=== PATIENT | female | born 1980 | race African-American/Black ===

== ENCOUNTER 2016-12-04 08:09 | Emergency (ER) | payer MEDICAID ==
[~2016-12-04] VITALS: Ht 172.7 cm; Wt 70.0 kg
[~2016-12-04 08:09] MED LIST: ASPI-1159 PO; IBUP-2030 PO; NITR0.4T49 SL
[2016-12-04] MEDS ORDERED: IBUPROFEN 600MG TABLET PO ONE (09:00)
[2016-12-04] MEDS ORDERED: BACITRACIN ZINC OINT UDPKT TOP ONE ×2 (09:15→10:15)
[2016-12-04 10:30] VITALS: BP 150/92
== END 2016-12-04 11:29 | disposition home or self-care (01) ==
LOC: ER 11:27
DX: S90.01XA Contusion of right ankle, initial encounter (principal); S90.31XA Contusion of right foot, initial encounter; I25.2 Old myocardial infarction; F17.210 Nicotine dependence, cigarettes, uncomplicated; F12.10 Cannabis abuse, uncomplicated; F14.10 Cocaine abuse, uncomplicated; Z88.0 Allergy status to penicillin; Z79.82 Long term (current) use of aspirin; X58.XXXA Exposure to other specified factors, initial encounter; Y93.89 Activity, other specified; Y92.29 Other specified public building as the place of occurrence of the external cause
CPT/HCPCS: 73600; 73620; 99284; Z7610

== ENCOUNTER 2018-01-22 23:36 | Emergency (ER) | payer MEDICAID ==
[~2018-01-22] VITALS: Ht 162.6 cm; Wt 63.0 kg
[2018-01-23] MEDS ORDERED: TETANUS, DIPHTHERIA, PERTUSSIS VAC/PF 0.5ML (>7YR OLD) IM ONE (00:15)
[2018-01-23] MEDS ORDERED: LORAZEPAM 1MG TABLET PO ONE (00:15)
[2018-01-23] MEDS ORDERED: LIDOCAINE 1%/EPI 1:100,000 10 ML VIAL IJ ONE (00:15)
[2018-01-23] MEDS ORDERED: ACETAMINOPHEN 325MG TABLET PO ONE (00:15)
[2018-01-23] MEDS ORDERED: BACITRACIN ZINC OINT UDPKT TOP ONE (00:15)
[2018-01-23] MEDS ORDERED: HYDROCODONE/ACETAMINOPHEN 5/325MG TABLET PO ONE (02:00)
[2018-01-23 02:41] VITALS: BP 121/71
== END 2018-01-23 02:50 | disposition home or self-care (01) ==
LOC: ER 23:36
DX: S56.121A Laceration of flexor muscle, fascia and tendon of right index finger at forearm level, initial encounter (principal); S51.811A Laceration without foreign body of right forearm, initial encounter; W25.XXXA Contact with sharp glass, initial encounter; Y93.89 Activity, other specified; Y92.89 Other specified places as the place of occurrence of the external cause; Y99.8 Other external cause status; Z88.0 Allergy status to penicillin
CPT/HCPCS: 12002; 73090; 90471; 90715; 99284; J3490; Z7610

== ENCOUNTER 2018-05-31 11:03 | Emergency (ER) | payer MEDICAID ==
[~2018-05-31] VITALS: Ht 177.8 cm; Wt 87.0 kg
[2018-05-31 15:36] LABS: CLARITY URINE CLEAR (CLEAR); COLOR URINE ORANGE (YELLOW); KETONES URINE NEGATIVE (NEGATIVE); LEUKOCYTE ESTERASE URINE 1+ (NEGATIVE); NITRITE URINE NEGATIVE (NEGATIVE); OCCULT BLOOD URINE 3+ (NEGATIVE); PH URINE 5.5 (4.5-8.0); PROTEIN URINE TRACE (NEGATIVE); SPECIFIC GRAVITY URINE 1.016 (1.005-1.030); UROBILINOGEN URINE 0.2 E.U./dL (0.2-1.0)
[2018-05-31] MEDS ORDERED: NITROFURANTOIN 100MG M/M CAPSULE PO ONE (16:00)
[2018-05-31 16:02] LABS: CHLORIDE 107 mEq/L (98-107)
[2018-05-31 16:06] LABS: BASOPHILS % 0.9 % (0.0-2.0); EOSINOPHILS % 4.2 % (0.0-5.0); HEMATOCRIT. 38.7 % (36.0-48.0); HEMOGLOBIN. 12.7 g/dL (12.0-16.0); LYMPHOCYTES % 29.4 % (20.0-50.0); MEAN CORPUSCULAR HEMOGLOBIN 31.2 pg (28.0-32.0); MEAN CORPUSCULAR VOLUME 94.7 fL (81.0-99.0); MEAN PLATELET VOLUME 7.7 fl (7.4-10.4); MONOCYTES % 8.2 % (2.0-8.0); NEUTROPHILS % 57.3 % (40.0-76.0); PLATELET 336 x1000/uL (130-400); RED BLOOD CELL COUNT 4.08 mill/uL (4.2-5.4); RED CELL DISTRIBUTION WIDTH 15.8 % (11.6-14.6)
[2018-05-31 16:12] LABS: B-HCG QUANTITATIVE < 1 mIU/mL (<3)
[2018-05-31] MEDS ORDERED: KETOROLAC 60MG/2ML VIAL IM ONE (17:15)
[2018-05-31 17:22] VITALS: BP 124/79
== END 2018-05-31 17:48 | disposition home or self-care (01) ==
LOC: ER 11:03
DX: N30.00 Acute cystitis without hematuria (principal); N93.9 Abnormal uterine and vaginal bleeding, unspecified; I10 Essential (primary) hypertension; I25.2 Old myocardial infarction; F17.210 Nicotine dependence, cigarettes, uncomplicated; Z88.0 Allergy status to penicillin; Z79.82 Long term (current) use of aspirin; Z98.890 Other specified postprocedural states
CPT/HCPCS: 36415; 74176; 80048; 81003; 81025; 84702; 85025; 86850; 86900; 86901; 96372; 99284; J1885

== ENCOUNTER 2023-09-21 09:55 | Emergency (ER) | payer MEDICAID ==
[~2023-09-21] VITALS: Ht 165.1 cm; Wt 68.0 kg
[~2023-09-21 09:55] MED LIST changes: -ASPI-1159 PO; +ASPI-1497 PO
[2023-09-21 09:57] VITALS: O2SAT 98
[2023-09-21] MEDS ORDERED: P50 MT (11:06)
[2023-09-21] MEDS ORDERED: B50 MT (11:06)
[2023-09-21] MEDS ORDERED: ONDA4TAB11 PO (11:06)
[2023-09-21] MEDS ORDERED: FAMO40TA70 MT (11:06)
[2023-09-21] MEDS: PREDNISONE 20MG TABLET PO ONE (11:15)
[2023-09-21] MEDS: ONDANSETRON 4MG ODT PO ONE (11:16)
[2023-09-21] MEDS: FAMOTIDINE 20MG TABLET PO STA (11:16)
[2023-09-21] MEDS: DIPHENHYDRAMINE 50MG/ML VIAL IM STA (11:18)
[2023-09-21] MEDS ORDERED: NAP5EC MT (11:50)
[2023-09-21 12:27] VITALS: BP 132/78; PULSE 88; RESP 15; TEMP 98.5
== END 2023-09-21 12:29 | disposition home or self-care (01) ==
LOC: ER 09:55
DX: R21 Rash and other nonspecific skin eruption (principal); L29.9 Pruritus, unspecified; I10 Essential (primary) hypertension; I25.2 Old myocardial infarction; Z98.890 Other specified postprocedural states; Z79.899 Other long term (current) drug therapy
CPT/HCPCS: 82962; 96372; 99284; Q0162; J7512; J1200; Z7610 ×6